=== PATIENT | male | born 1955 | race Caucasian/White ===

== ENCOUNTER 2016-08-31 09:45 | Day surgery (SDC) | payer OTHER ==
[~2016-08-31] VITALS: Ht 177.8 cm; Wt 77.0 kg
[~2016-08-31 09:45] MED LIST: 0.9% Sodium Chloride 1,000 ML IV SCH; ASPI-973 PO; CHOL10008 PO; FLAX100038 PO; GLUC-180 PO; INSU100I SC; LOSA50TA37 PO; OMEG1CAP56 PO; SAW/1TAB2 PO; SIMV10TA4 PO; Sodium Chloride LOK Flush 10 mL Syringe IV PRN; fentaNYL-PF 50 mCg/mL 2 mL Inj IVPUSH PRN
[2016-08-31 10:17] VITALS: BP 135/73; PULSE 74; RESP 16; O2SAT 98
[2016-08-31 11:03] VITALS: BP 102/57; PULSE 62; RESP 16; O2SAT 98
[2016-08-31 11:14] VITALS: BP 94/55; PULSE 64; RESP 14; O2SAT 97
[2016-08-31 11:23] VITALS: BP 113/65; PULSE 64; RESP 16; O2SAT 99
--- NOTE | 2016-08-31 13:21 | ENDO ---
[address] [address] ENDOSCOPY PROCEDURE PATIENT: OLGA SCOTT : 1955 MR#: [id number] ADMIT: 08/31/2016 JOB ID: [id number] PROCEDURE: Colonoscopy. INDICATION: Screening. ANESTHESIA: Patient's ASA classification is two. Mallampati score is two. MEDICATIONS: 1. Versed 5 mg. 2. Fentanyl 100 mcg. INSTRUMENT USED: PCF H 180 AL. PREPARATION QUALITY: Fair. PROCEDURE DETAILS: After informed consent was obtained, the patient was brought to the GI suite, where he was placed on oxygen via nasal cannula and monitored with continuous pulse oximeter, telemetry, and blood pressure monitoring. A time-out was performed, then he was placed in the left lateral decubitus position and medications were administered for sedation. Digital rectal exam with palpation of the prostate was performed which was unremarkable. The colonoscope was then inserted into the rectum and advanced under direct visualization to the cecum, which was identified by the presence of the ileocecal valve and appendiceal orifice. Once the cecum was reached, the colonoscope was withdrawn back into the rectum as the mucosa and lumen were examined. In the rectum, retroflexion was performed. Following retroflexion, the remaining air in the rectum was suctioned and the procedure was completed. FINDINGS: 1. In the cecum there was an approximately 4 mm flat polyp that was removed with cold biopsy forceps. 2. The remainder the colon exam was otherwise unremarkable. IMPRESSION: Cecal polyp. RECOMMENDATIONS: Repeat colonoscopy pending polyp pathology results. COMPLICATIONS: None. ESTIMATED BLOOD LOSS: Less than 5 mL.
--- NOTE | 2016-09-02 15:12 | PATH ---
SURGICAL PATHOLOGY Attending Physician:Shae Page CASE STATUS: Signed Out PATIENT NAME: OLGA SCOTT PID: [id number] : 1955 DATE COLLECTED:08/31/2016 20:15 SPECIMEN: Colon, Biopsy CLINICAL HISTORY: 1). CECAL POLYP X1 FINAL DIAGNOSIS: Cecal Polyp: Benign colonic mucosa consistent with polypoid redundancy. Negative for dysplasia and malignancy. Multiple microscopic levels examined. ICD10: K63.5 GROSS DESCRIPTION: The specimen is received in one formalin filled container labeled with the patient's name, sublabeled "cecal polyp" and consists of 2 portions of tissue which aggregate to 0.6 x 0.2 x 0.2 CM. The specimen is entirely submitted in one cassette. 08/31/2016 [facility] MICRO DESCRIPTION: Please see diagnosis. ICD-9 CODES: CPT CODES: 1: 21208 Electronically Signed Out Aaliyah Schaffer MD [facility] [address], [place] [address] Technical component performed at [facility], [address] [place] [address] Ave[address], [place], [address]
== END 2016-08-31 23:59 | disposition home or self-care (01) ==
LOC: END 09:45
PROVIDERS: ATTEND Internal Medicine Gastroenterology
DX: Z12.11 Encounter for screening for malignant neoplasm of colon (principal); Z79.82 Long term (current) use of aspirin; K63.5 Polyp of colon; I10 Essential (primary) hypertension; E10.9 Type 1 diabetes mellitus without complications; E78.00 Pure hypercholesterolemia, unspecified; Z79.4 Long term (current) use of insulin
CPT/HCPCS: 45380; G0500; J2250; J7030